=== PATIENT | female | born 1990 | race Caucasian/White ===

== ENCOUNTER 2016-07-26 10:56 | Emergency (ER) | payer OTHER ==
[~2016-07-26] VITALS: Ht 175.3 cm; Wt 107.4 kg
[2016-07-26 10:59] VITALS: TEMP 37.2; Ht 175.3 cm; Wt 107.4 kg
[2016-07-26 11:10] VITALS: O2SAT 98
[2016-07-26] MEDS ORDERED: MULT1CAP3 PO (11:59)
[2016-07-26] MEDS ORDERED: MULT-859 PO (11:59)
[2016-07-26 12:08] LABS: BASO % 0.2 %; BASO ABS # 0.01 K/uL (0-0.2); COMPLETE YES; EOS % 0.7 %; HEMATOCRIT 43.8 % (37-47); IG% 0.2 %; LYMPH % 6.4 %; LYMPH ABS # 0.38 K/uL (1.2-3.4); MEAN CELL VOLUME 90.5 fL (80-100); MEAN CORPUSCULAR HEMOGLOBIN 31.2 pg (25-34); MEAN CORPUSCULAR HGB CONC 34.5 g/dl (32-36); MONO % 11.3 %; NEUT % 81.2 %; PLATELET COUNT 264 K/uL (130-400); RED BLOOD COUNT 4.84 M/uL (4.2-5.4); WHITE BLOOD COUNT 5.94 K/uL (4.8-10.8)
[2016-07-26 12:15] LABS: ALT/SGPT 20 U/L (12-78); BLOOD UREA NITROGEN 10 mg/dl (7-18); BUN/CREATININE RATIO 12.8 (10-20); CALCIUM 8.4 mg/dl (8.5-10.1); CARBON DIOXIDE 23 mmol/L (21-32); CHLORIDE 109 mmol/L (98-107); CREATININE 0.74 mg/dl (0.60-1.20); GLUCOSE 92 mg/dl (70-99); POTASSIUM 3.3 mmol/L (3.5-5.1); SODIUM 141 mmol/L (136-145)
--- NOTE | 2016-07-26 12:16 | DIAGNOSTIC IMAGING REPORT ---
CHEST ONE VIEW PORTABLE CLINICAL HISTORY: syncope COMPARISON STUDY: No previous studies for comparison. FINDINGS: The cardiac and mediastinal contours are normal. There is no evidence of focal pulmonary consolidation. There is no evidence of failure. No pleural effusions are visualized.[ IMPRESSION: No active disease in the chest. Electronically signed by: Logan Joseph M.D. 07/26/2016 12:15 PM Dictated Date/Time: 07/26/2016 12:15 PM
[2016-07-26 12:25] LABS: ALB/GLOB RATIO 0.8 (0.9-2); ALKALINE PHOSPHATASE 80 U/L (45-117); AST/SGOT 14 U/L (15-37); THYROID STIMULATING HORMONE 0.745 uIu/ml (0.300-4.500)
[2016-07-26] MEDS ORDERED: MECLIZINE HCL 25 MG TAB PO STA (13:43)
[2016-07-26] MEDS ORDERED: SODIUM CHLORIDE 0.9% 1000ML 1,000 ML IV STA ×2 (13:43)
[2016-07-26] MEDS ORDERED: ONDANSETRON INJ 2 MG/ML 2 ML VIAL IV STA (13:43)
[2016-07-26] MEDS ORDERED: POTASSIUM CHLORIDE 10 MEQ TABCR PO STA (13:57)
--- NOTE | 2016-07-26 14:12 | EMERGENCY ROOM VISIT NOTE ---
History Report prepared by William: Samanta Olea Under the Supervision of: Dr. Sol Rivas M.D. First contact with patient: 12:43 Chief Complaint: SYNCOPE Stated Complaint: SYNCOPE Nursing Triage Summary: Patient arrived via BLS and states last night started feeling dizzy and lightheaded around 1600 so she lied down hoping it would go away. Patient has hx of vaso vagal events, but they always had an explanation. Patient states woke up around 0300 and got into shower and started to feel nauseated and light headed and sat down in shower and leaned head against wall and passed out. Patient states had a second syncopal episode at 0600 from standing position and states patient hit head. Patient states she was unconcious for 30 seconds and then was disoriented for approxiately 30 minutes after. Patient c/o general pressure in head. Patient had diarrhea x3 today. History of Present Illness The patient is a 26 year old female who presents to the Emergency Room via BLS with complaints of multiple syncopal episodes that occurred this morning. The patient notes that she developed some dizziness yesterday evening and laid down for a little while without relief. She subsequently developed some pressure in the middle of her forehead, so she assumed she had a migraine. She took ibuprofen and went to bed. This morning around 3AM, she woke up feeling dizzy as if the room was spinning. She laid in bed and eventually felt like she was well enough to get up and take a shower. Around 5AM while she was showering, she felt lightheaded and a floating sensation in her head. Her vision also started to tunnel. She sat down on the floor of her shower and rested her head on the side of the tub. She think she may have lost consciousness. She denies hitting her head or injuring herself at that time. The patient eventually got up and tried to get to bed but she had to yell for her for help. She lost consciousness for about 30 seconds. She is unsure if she hit her head at that time as her did not witness her falling. Since then, she has been dizzy when she is sitting up or standing. She also had a few episodes of diarrhea this morning. She went to [facility] for evaluation and has another syncopal episode while they were recording orthostatic vital signs. Currently, the patient complains of some dizziness and soreness to the back of her head. She does not think there is chance of , as she has an IUD. Source of History: patient Onset: today Position: other (global) Quality: other (syncope) Timing: other (episodic) Associated Symptoms: + diarrhea, + headache (sore to back of head) Note: Other symptoms: dizziness, lightheadedness Review of Systems See HPI for pertinent positives & negatives. A total of 10 systems reviewed and were otherwise negative. Past Medical & Surgical Medical Problems: (1) History of use of contraceptive intrauterine device (IUD) Family History No pertinent family history stated. Social History Smoking Status: Never Smoker Marital Status: Housing Status: lives with significant other Current/Historical Medications Scheduled Multiple Vitamins W/ Minerals (Womens Multi), 1 CAP PO DAILY Multiple Vitamins W/ Minerals (Hair/Skin/Nails/Biotin), 1 TAB PO DAILY Allergies Coded Allergies: No Known Allergies (Unverified , 07/26/16) Physical Exam Vital Signs Date Time Temp Pulse Resp B/P Pulse Ox O2 Delivery O2 Flow Rate FiO2 07/26/16 18:09 82 18 112/67 96 07/26/16 17:22 72 18 111/72 98 Room Air 07/26/16 14:38 109 16 105/80 95 Room Air 07/26/16 14:35 94 121/71 95 Room Air 115 109/82 109 105/80 07/26/16 12:35 84 07/26/16 12:30 78 16 110/77 94 Room Air 07/26/16 11:10 98 Room Air 07/26/16 10:59 37.2 87 16 132/96 97 Room Air Physical Exam Vital signs reviewed. General: Well-appearing 26-year-old female, in no significant distress, obese. HEENT: No scleral icterus, PERRLA, neck supple. Atraumatic. Cardiovascular: Regular rate and rhythm, no extra sounds. Pulmonary: Clear to auscultation bilaterally, normal work of breathing. Abdomen: Soft, nontender, nondistended, positive bowel sounds. Musculoskeletal: Atraumatic, no peripheral edema. Neurologic: Patient awake alert and oriented x 3, full strength in all 4 extremities. Cranial nerves 2 through 12 grossly intact. Skin: Warm, dry, no rash Medical Decision & Procedures ER Provider Diagnostic Interpretation: Radiology results as stated below per my review and radiologist interpretation: CHEST ONE VIEW PORTABLE CLINICAL HISTORY: syncope COMPARISON STUDY: No previous studies for comparison. FINDINGS: The cardiac and mediastinal contours are normal. There is no evidence of focal pulmonary consolidation. There is no evidence of failure. No pleural effusions are visualized.[ IMPRESSION: No active disease in the chest. Electronically signed by: Logan Joseph M.D. 07/26/2016 12:15 PM Dictated Date/Time: 07/26/2016 12:[address] NONCONTRAST CT DOSE: 537.48 mGy.cm HISTORY: Mental status change vertigo, MARTINEZ TECHNIQUE: Multiaxial CT images of the head were performed without the use of intravenous contrast. Comparison: None. Findings: The paranasal sinuses and mastoid air cells are clear. The calvarium and skull base are intact. The ventricles and sulci are within normal limits. There is no mass, hematoma, midline shift, or acute infarct. Impression: No acute intracranial abnormality. Electronically signed by: Shantanu Newell M.D. 07/26/2016 2:11 PM Dictated Date/Time: 07/26/2016 2:[address] ANGIOGRAM OF THE CHEST CLINICAL HISTORY: Syncope. COMPARISON STUDY: Chest x-ray dated 07/26/2016. TECHNIQUE: Following the IV administration of 85 cc of Optiray 320, CT angiogram of the chest was performed from the upper abdomen to the thoracic inlet utilizing the pulmonary embolus protocol. Images are reviewed in the axial, sagittal, and coronal planes. 3-D MIPS images are created and assessed. The IV infiltrated during the examination without 30 cc of extravasation. This was discussed with the nurse in the emergency department by the technologist. The examination is degraded by motion artifact. The examination is also significantly degraded by suboptimal contrast opacification of the pulmonary arteries. CT DOSE: 717.91 mGy.cm FINDINGS: Thyroid: Imaged portions of the thyroid gland are normal in size and attenuation. Thoracic aorta: The thoracic aorta is normal in caliber and demonstrates variant 3-vessel arch anatomy. There is a bovine arch, and an aberrant right subclavian artery arises as the third branch, coursing posterior to the esophagus. No dissection is seen. Pulmonary vasculature: The pulmonary trunk is dilated, measuring 3.9 cm in diameter. This suggests pulmonary artery hypertension. There are no filling defects identified in main or lobar branches to suggest central pulmonary embolus. Evaluation of the peripheral branches is degraded by motion artifact and poor contrast opacification. Heart: The heart appears mildly enlarged and is without pericardial effusion. Lungs and pleural spaces: Evaluation of the lung parenchyma is degraded by respiratory motion artifact. The lungs and pleural spaces are clear. The trachea and central airways are patent. Mediastinum: There is no mediastinal lymphadenopathy. Soha: Clear. Axillae: There is no axillary lymphadenopathy. Upper abdomen: Findings suggest hepatic steatosis. Partially visualized upper abdominal viscera is otherwise within normal limits. Skeletal structures: No lytic or blastic bony lesions are seen. IMPRESSION: 1. Significantly motion degraded examination. 2. There is no evidence of central pulmonary embolus within the main or lobar pulmonary arteries. Evaluation of the peripheral branches is severely degraded by poor contrast opacification and motion. 3. Mild cardiac enlargement. Dilatation of the pulmonary trunk suggests pulmonary artery hypertension. 4. The lungs are clear. 5. Hepatic steatosis. 6. An aberrant right subclavian artery is incidentally noted. Electronically signed by: Juan C De Paz M.D. 07/26/2016 5:38 PM Dictated Date/Time: 07/26/2016 5:31 PM Laboratory Results 07/26/16 11:10 Red Blood Count 4.84, Mean Corpuscular Volume 90.5, Mean Corpuscular Hemoglobin 31.2, Mean Corpuscular Hemoglobin Concent 34.5, Mean Platelet Volume 12.0, Neutrophils (%) (Auto) 81.2, Lymphocytes (%) (Auto) 6.4, Monocytes (%) (Auto) 11.3, Eosinophils (%) (Auto) 0.7, Basophils (%) (Auto) 0.2, Neutrophils # (Auto ) 4.83, Lymphocytes # (Auto) 0.38, Monocytes # (Auto) 0.67, Eosinophils # (Auto ) 0.04, Basophils # (Auto) 0.01 07/26/16 11:10 Test 07/26/16 11:10 07/26/16 15:25 07/26/16 16:31 White Blood Count 5.94 K/uL (4.8-10.8) Red Blood Count 4.84 M/uL (4.2-5.4) Hemoglobin 15.1 g/dL (12.0-16.0) Hematocrit 43.8 % (37-47) Mean Corpuscular Volume 90.5 fL (80-100) Mean Corpuscular Hemoglobin 31.2 pg (25-34) Mean Corpuscular Hemoglobin Concent 34.5 g/dl (32-36) Platelet Count 264 K/uL (130-400) Mean Platelet Volume 12.0 fL (7.4-10.4) Neutrophils (%) (Auto) 81.2 % Lymphocytes (%) (Auto) 6.4 % Monocytes (%) (Auto) 11.3 % Eosinophils (%) (Auto) 0.7 % Basophils (%) (Auto) 0.2 % Neutrophils # (Auto) 4.83 K/uL (1.4-6.5) Lymphocytes # (Auto) 0.38 K/uL (1.2-3.4) Monocytes # (Auto) 0.67 K/uL (0.11-0.59) Eosinophils # (Auto) 0.04 K/uL (0-0.5) Basophils # (Auto) 0.01 K/uL (0-0.2) RDW Standard Deviation 41.2 fL (36.4-46.3) RDW Coefficient of Variation 12.4 % (11.5-14.5) Immature Granulocyte % (Auto) 0.2 % Immature Granulocyte # (Auto) 0.01 K/uL (0.00-0.02) Anion Gap 9.0 mmol/L (3-11) Est Creatinine Clear Calc Drug Dose 151.7 ml/min Estimated GFR () 130.5 Estimated GFR (Non- 112.6 BUN/Creatinine Ratio 12.8 (10-20) Calcium Level 8.4 mg/dl (8.5-10.1) Total Bilirubin 0.4 mg/dl (0.2-1) Aspartate Amino Transf (AST/SGOT) 14 U/L (15-37) Alanine Aminotransferase (ALT/SGPT) 20 U/L (12-78) Alkaline Phosphatase 80 U/L (45-117) Total Creatine Kinase 50 U/L (26-192) Creatine Kinase MB < 0.5 ng/ml (0.5-3.6) Creatine Kinase MB Ratio (0-3.0) Total Protein 7.5 gm/dl (6.4-8.2) Albumin 3.3 gm/dl (3.4-5.0) Globulin 4.2 gm/dl (2.5-4.0) Albumin/Globulin Ratio 0.8 (0.9-2) Thyroid Stimulating Hormone (TSH) 0.745 uIu/ml (0.300-4.500) Urine Color DK YELLOW Urine Appearance CLOUDY (CLEAR) Urine pH 5.5 (4.5-7.5) Urine Specific [place] 1.029 (1.000-1.030) Urine Protein NEG (NEG) Urine Glucose (UA) NEG (NEG) Urine Ketones 1+ (NEG) Urine Occult Blood 3+ (NEG) Urine Nitrite NEG (NEG) Urine Bilirubin NEG (NEG) Urine Urobilinogen NEG (NEG) Urine Leukocyte Esterase SMALL (NEG) Urine WBC (Auto) 10-30 /hpf (0-5) Urine RBC (Auto) 10-30 /hpf (0-4) Urine Hyaline Casts (Auto) 5-10 /lpf (0-5) Urine Epithelial Cells (Auto) >30 /lpf (0-5) Urine Bacteria (Auto) 1+ (NEG) Bedside D-Dimer > 450 ng/mlFEU (0-450) Date/Time Source Procedure Growth Status 07/26/16 15:25 Urine , Clean Catch Urine Culture - Final THREE TYPES OF ORGANISMS PRESENT, ALL... Complete Laboratory results per my review. Medications Administered Medications (Trade) Dose Ordered Sig/Katy Route Start Time Stop Time Status Last Admin Dose Admin Sodium Chloride (Nss 1000ml) 1,000 ml @ 999 mls/hr Q1H1M STAT IV 07/26/16 13:43 07/26/16 14:55 DC 07/26/16 13:51 999 MLS/HR Meclizine HCl (Antivert Tab) 25 mg NOW STAT PO 07/26/16 13:43 07/26/16 13:45 DC 07/26/16 13:49 25 MG Ondansetron HCl (Zofran Inj) 4 mg NOW STAT IV 07/26/16 13:43 07/26/16 13:45 DC 07/26/16 13:48 4 MG Potassium Chloride (Klor-Con M10) 40 meq NOW STAT PO 07/26/16 13:57 07/26/16 13:58 DC 07/26/16 14:34 40 MEQ Acetaminophen/ Hydrocodone Bitart ([place] 5/325mg Home Pack) 1 homepack UD ONCE PO 07/26/16 17:45 07/26/16 17:47 DC 07/26/16 17:59 1 HOMEPACK ECG Indication: syncope Rate (beats per minute): 87 Rhythm: normal sinus Findings: no acute ischemic change, no ectopy ED Course 1341: The patient was evaluated in room C1B. A complete history and physical examination was performed. 1343: Ordered Zofran Inj 4 mg IV, Meclizine HCl 25 mg PO, NSS 1000 ml @ 150 mls/ hr IV, NSS 1000 ml @ 999 mls/hr IV. 1357: Ordered Potassium Chloride 40 meq PO. 1624: I reassessed the patient and updated her on results. She was feeling better. She agreed to a D-dimer. 1655: I reassessed the patient and updated her on D-dimer results. She will have a chest CT. 1729: Upon reevaluation, the patient was resting comfortably. I discussed findings with the patient. She verbalized agreement of the treatment plan. The patient was discharged home. 1745: Ordered [place] 5/325 mg homepack PO. Medical Decision Differential diagnosis: Etiologies such as vasovagal event, infection, hypoglycemia, electrolyte abnormalities, cardiac sources, intracerebral event, toxicologic, neurologic, as well as others were entertained. This patient was evaluated and appeared to be in no significant distress. IV access was obtained and laboratory work was drawn. The patient was placed on the door paneler and found to be in a normal sinus rhythm. There is no evidence of ectopy or dysrhythmia. Laboratory work was performed. She is mildly hypokalemic. Chest x-ray is clear. Patient was feeling somewhat improved after IV hydration and Zofran. She was given oral meclizine. She was given oral potassium. A d-dimer was added on and is elevated. A CT scan of the chest was performed and reveals no evidence of pulmonary embolus. The IV infiltrated. The patient was notified and compresses were applied. The IV was discontinued. I suspect the patient is suffering from an orthostatic syncope/ near syncope. She was advised to drink plenty of fluids and watch the right upper extremity carefully. She will follow-up with her physician this week and return to the ER for worsening of symptoms or any medical concerns. Impression Primary Impression: Orthostatic syncope Scribe Attestation The scribe's documentation has been prepared under my direction and personally reviewed by me in its entirety. I confirm that the note above accurately reflects all work, treatment, procedures, and medical decision making performed by me. Departure Information Dispostion Home / Self-Care Referrals [facility] Patient Instructions My [facility] Additional Instructions Diagnosis: Orthostatic syncope Drink plenty of clear fluids. Ibuprofen 600 mg every 6 hours as needed for pain. [place] one to 2 tabs every 6 hours as needed for severe discomfort. Do not drive or take Tylenol with this medication Follow-up with [facility] regarding the syncopal episodes. There is a concern for pulmonary hypertension on CT scan. Please have your primary care physician evaluate this further. Return to the emergency department for worsening of symptoms or any medical concerns.
[2016-07-26 15:40] LABS: URINE APPEARANCE CLOUDY (CLEAR); URINE BILIRUBIN NEG (NEG); URINE COLOR DK YELLOW; URINE EPITHELIAL CELL AUTO >30 /lpf (0-5); URINE NITRITE NEG (NEG); URINE PH 5.5 (4.5-7.5); URINE SPECIFIC GRAVITY 1.029 (1.000-1.030); UROBILINOGEN NEG (NEG); ZZUR CULT IF INDIC CLEAN CATCH YES
[2016-07-26 15:42] LABS: MANUAL MICROSCOPIC REQUIRED? NO; REVIEW REQ? NO
[2016-07-26] MEDS ORDERED: OPTIRAY 320 IV PRN (17:00)
--- NOTE | 2016-07-26 17:39 | DIAGNOSTIC IMAGING REPORT ---
CT ANGIOGRAM OF THE CHEST CLINICAL HISTORY: Syncope. COMPARISON STUDY: Chest x-ray dated 07/26/2016. TECHNIQUE: Following the IV administration of 85 cc of Optiray 320, CT angiogram of the chest was performed from the upper abdomen to the thoracic inlet utilizing the pulmonary embolus protocol. Images are reviewed in the axial, sagittal, and coronal planes. 3-D MIPS images are created and assessed. The IV infiltrated during the examination without 30 cc of extravasation. This was discussed with the nurse in the emergency department by the technologist. The examination is degraded by motion artifact. The examination is also significantly degraded by suboptimal contrast opacification of the pulmonary arteries. CT DOSE: 717.91 mGy.cm FINDINGS: Thyroid: Imaged portions of the thyroid gland are normal in size and attenuation. Thoracic aorta: The thoracic aorta is normal in caliber and demonstrates variant 3-vessel arch anatomy. There is a bovine arch, and an aberrant right subclavian artery arises as the third branch, coursing posterior to the esophagus. No dissection is seen. Pulmonary vasculature: The pulmonary trunk is dilated, measuring 3.9 cm in diameter. This suggests pulmonary artery hypertension. There are no filling defects identified in main or lobar branches to suggest central pulmonary embolus. Evaluation of the peripheral branches is degraded by motion artifact and poor contrast opacification. Heart: The heart appears mildly enlarged and is without pericardial effusion. Lungs and pleural spaces: Evaluation of the lung parenchyma is degraded by respiratory motion artifact. The lungs and pleural spaces are clear. The trachea and central airways are patent. Mediastinum: There is no mediastinal lymphadenopathy. Soha: Clear. Axillae: There is no axillary lymphadenopathy. Upper abdomen: Findings suggest hepatic steatosis. Partially visualized upper abdominal viscera is otherwise within normal limits. Skeletal structures: No lytic or blastic bony lesions are seen. IMPRESSION: 1. Significantly motion degraded examination. 2. There is no evidence of central pulmonary embolus within the main or lobar pulmonary arteries. Evaluation of the peripheral branches is severely degraded by poor contrast opacification and motion. 3. Mild cardiac enlargement. Dilatation of the pulmonary trunk suggests pulmonary artery hypertension. 4. The lungs are clear. 5. Hepatic steatosis. 6. An aberrant right subclavian artery is incidentally noted. Electronically signed by: Juan C De Paz M.D. 07/26/2016 5:38 PM Dictated Date/Time: 07/26/2016 5:31 PM
[2016-07-26] MEDS ORDERED: NORCO 5/325MG HOME PACK PO ONE (17:45)
[2016-07-26 18:09] VITALS: BP 112/67; PULSE 82; O2SAT 96
== END 2016-07-26 18:11 | disposition home or self-care (01) ==
LOC: EDBD 10:56 → C.EDC 10:59
DX: I95.1 Orthostatic hypotension (principal); R55 Syncope and collapse; E87.6 Hypokalemia; Z97.5 Presence of (intrauterine) contraceptive device

== ENCOUNTER → 2016-08-16 | Outpatient (CLI) | payer OTHER ==
[~2016-08-16] MED LIST: MULT-859 PO; MULT1CAP3 PO
--- NOTE | 2016-08-16 15:46 | ECHOCARDIOGRAM REPORT ---
*NOTICE TO RECEIVING CONSTITUTION PARTY AGENCY This information is strictly Confidential and protected under [place] law. [place] law prohibits you from making any further disclosure of this information unless further disclosure is expressly permitted by the written consent of the person to whom it pertains or is authorized by law. A general authorization for the release of medical or other information is not sufficient for this purpose. Hospital accepts no responsibility if the information is made available to any other person, INCLUDING THE PATIENT. Interpretation Summary * Name: PAOLA CABALLERO Study Date: 08/16/2016 01:04 PM BP: 108/62 mmHg * Patient Location: [facility] HR: 77 * : 1990 (M/d/yyyy) Gender: Female Height: 69 in * Age: 26 yrs Ethnicity: CA Weight: 225 lb * Ordering Physician: Alexys George * Referring Physician: Alexys George * Performed By: Valerie Martinez * * Reason For Study: ABNORMAL CT OF THE CHEST * BSA: 2.2 m2 * -- Conclusions -- * 1. Normal LV size and wall thickness. * 2. Normal LV function. LVEF 65-70%. * 3. Normal RV size and function. * 4. No significant valvular pathology. * 5. No evidence of pulmonary hypertension. * 6. No prior studies for comparison. Procedure Details * A complete two-dimensional transthoracic echocardiogram was performed (2D, M-mode, Doppler and color flow Doppler). Left Ventricle * The left ventricle is normal in size. * There is normal left ventricular wall thickness. * Ejection Fraction = 65-70%. Right Ventricle * The right ventricle is grossly normal size. * The right ventricular systolic function is normal as assessed by tricuspid annular plane systolic excursion (TAPSE) (normal >1.5 cm). Atria * Borderline left atrial enlargement. * The right atrium is borderline dilated. * No ASD detected; PFO is not assessed. Mitral Valve * The mitral valve leaflets appear normal. There is no evidence of stenosis, fluttering, or prolapse. * There is no mitral valve stenosis. * Significant mitral regurgitation is absent. Tricuspid Valve * The tricuspid valve is not well visualized, but is grossly normal. * There is trace tricuspid regurgitation. Aortic Valve * The aortic valve opens well. * The aortic valve is trileaflet. * No hemodynamically significant valvular aortic stenosis. * There is no significant aortic regurgitation. Pulmonic Valve * The pulmonic valve is not well seen, but is grossly normal. * There is no pulmonic valvular stenosis. * Trace pulmonic valvular regurgitation. Great Vessels * The aortic root and proximal ascending aorta are normal sized. * No Doppler or imaging evidence of an aortic coarctation. * IVC 1.8 cm, <50% change with respiration. Esitmated RA 8 mmHg. MMode 2D Measurements and Calculations IVSd 0.77 cm IVSs 1.3 cm LVIDd 4.8 cm LVIDs 2.7 cm LVPWd 0.91 cm LVPWs 2.3 cm IVS/LVPW 0.85 FS 43.3 % EDV(Teich) 105.2 ml ESV(Teich) 27.0 ml EF(Teich) 74.4 % EDV(cubed) 107.5 ml ESV(cubed) 19.6 ml EF(cubed) 81.7 % % IVS thick 62.2 % % LVPW thick 153.3 % LV mass(C)d 132.8 grams LV mass(C)dI 61.2 grams/m\S\2 LV mass(C)s 187.5 grams LV mass(C)sI 86.3 grams/m\S\2 SV(Teich) 78.2 ml SI(Teich) 36.0 ml/m\S\2 SV(cubed) 87.9 ml SI(cubed) 40.5 ml/m\S\2 ACS 1.7 cm LA dimension 3.8 cm asc Aorta Diam 2.9 cm LVOT diam 2.0 cm LVOT area 3.0 cm\S\2 LVAd ap4 33.7 cm\S\2 LVLd ap4 8.4 cm EDV(MOD-sp4) 113.2 ml EDV(sp4-el) 114.4 ml LVAs ap4 15.5 cm\S\2 LVLs ap4 6.6 cm ESV(MOD-sp4) 30.6 ml ESV(sp4-el) 30.9 ml EF(MOD-sp4) 72.9 % EF(sp4-el) 73.0 % LVAd ap2 30.2 cm\S\2 LVLd ap2 8.0 cm EDV(MOD-sp2) 92.4 ml EDV(sp2-el) 96.5 ml LVAs ap2 13.0 cm\S\2 LVLs ap2 5.7 cm ESV(MOD-sp2) 24.4 ml ESV(sp2-el) 24.8 ml EF(MOD-sp2) 73.5 % EF(sp2-el) 74.3 % LVLd %diff -5.20 % EDV(MOD-bp) 102.4 ml LVLs %diff -15.39 % ESV(MOD-bp) 28.7 ml EF(MOD-bp) 72.0 % SV(MOD-sp4) 82.5 ml SI(MOD-sp4) 38.0 ml/m\S\2 SV(MOD-sp2) 67.9 ml SI(MOD-sp2) 31.3 ml/m\S\2 SV(MOD-bp) 73.7 ml SI(MOD-bp) 33.9 ml/m\S\2 SV(sp4-el) 83.5 ml SI(sp4-el) 38.4 ml/m\S\2 SV(sp2-el) 71.7 ml SI(sp2-el) 33.0 ml/m\S\2 Doppler Measurements and Calculations MV E max annabel 98.1 cm/sec MV A max annabel 58.8 cm/sec MV E/A 1.7 MV dec time 0.20 sec Ao V2 max 153.1 cm/sec Ao max PG 9.4 mmHg Ao max PG (full) 3.8 mmHg KIRIT(V,A) 2.3 cm\S\2 KIRIT(V,D) 2.3 cm\S\2 LV V1 max PG 5.6 mmHg LV V1 max 118.2 cm/sec PA V2 max 74.4 cm/sec PA max PG 2.2 mmHg PI end-d annabel 82.4 cm/sec
== END | disposition home or self-care (01) ==
LOC: C.CPL 12:27
PROVIDERS: ATTEND Obstetrics & Gynecology
DX: R93.8 Abnormal findings on diagnostic imaging of other specified body structures (principal)

== ENCOUNTER → 2017-12-03 | Outpatient (CLI) | payer OTHER ==
--- NOTE | 2017-12-03 11:26 | DIAGNOSTIC IMAGING REPORT ---
LEFT FOOT 3 VIEWS CLINICAL HISTORY: Left foot fracture. FINDINGS: 3 views of the left foot are obtained. No prior studies are available for comparison at the time of dictation. The skeletal structures are well mineralized. There is a minimally distracted fracture through the base of the fifth metatarsal. There is no significant periostitis or bony bridging. No additional fracture is identified. The joint spaces of the foot are maintained. Mild soft tissue edema is present along the lateral aspect of the midfoot. IMPRESSION: There is a minimally distracted fracture through the base of the fifth metatarsal. Electronically signed by: Juan C De Paz M.D. 12/03/2017 11:25 AM Dictated Date/Time: 12/03/2017 11:22 AM
== END | disposition home or self-care (01) ==
LOC: C.RDSM 11:15
PROVIDERS: ATTEND Family Medicine
DX: M79.672 Pain in left foot (principal)